=== PATIENT | female | born 1980 | race Native Hawaiian/Other Pacific Islander ===

== ENCOUNTER 2017-02-07 15:32 | Outpatient (CLI) | payer OTHER | END 2017-02-07 19:17 | disposition home or self-care (01) | LOC: LAB 15:32 | DX: D80.0 Hereditary hypogammaglobulinemia (principal); D51.8 Other vitamin B12 deficiency anemias | CPT/HCPCS: 82784 ==

== ENCOUNTER 2017-06-13 14:43 | Outpatient (CLI) | payer OTHER | END 2017-06-13 19:18 | disposition home or self-care (01) | LOC: LAB 14:43 | DX: D80.0 Hereditary hypogammaglobulinemia (principal); D51.8 Other vitamin B12 deficiency anemias | CPT/HCPCS: 82784 ==